=== PATIENT | male | born 1965 | race Caucasian/White ===

== ENCOUNTER 2020-11-22 01:51 | Emergency (ER) | payer OTHER ==
[~2020-11-22] VITALS: Ht 172.7 cm; Wt 79.4 kg
[2020-11-22] MEDS ORDERED: NAPROSYN500 MG PO (04:36)
[2020-11-22 05:10] VITALS: BP 107/70
== END 2020-11-22 05:10 | disposition home or self-care (01) ==
LOC: ER 01:51
DX: M25.561 Pain in right knee (principal); Z88.0 Allergy status to penicillin